=== PATIENT | male | born 1975 | race Caucasian/White ===

== ENCOUNTER 2020-02-16 15:22 | Observation (INO) | payer OTHER ==
--- OUTSIDE RECORDS SUMMARY | 2020-02-16 15:37 | XMS REPORT | Clinical Summary ---
:1975 Author Organization [facility] Address [address] [place] [address] Support Name Relationship Address Phone Jaylin Tinoco Unavailable [address] [place] [address] Gaston Madhav Unavailable Unavailable [email or web address], [facility] Emergency Department Team Providers Name Role Phone Tara Primary Care Provider Joel Dominique Unavailable Allergies No Known Allergies Medications Medication Sig Dispensed Refills Start Date End Date Status metoprolol (TOPROL-XL) Take 50 mg by 0 Active 50 MG 24 hr tablet mouth 2 (two) times daily. aspirin 81 MG EC tablet Take 81 mg by 0 Active mouth daily. pantoprazole (PROTONIX) Take 1 tablet (40 30 tablet 0 07/31/19 16 Active 40 MG tablet mg total) by mouth daily. 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 Pulmonary embolus 07/14/2015 Acute respiratory failure with hypoxemia 07/13/2015 Coronary artery disease involving [place] coronary paulette ry of [place] heart 07/11/2015 with other form of angina pectoris S/P CABG x 1 07/11/2015 Postoperative anemia due to acute blood loss 6 Acute respiratory insufficiency, postoperative 016 CAD (coronary artery disease) 07/05/2015 HTN (hypertension) 07/05/2015 Family History Medical History Relation Name Comments Peripheral vascular disease Father Relation Name Status Comments Father Social History Tobacco Use Types Packs/Day Years Used Date Former Smoker 0.75 20 07/04/1995 - 0 06/27/2015 Alcohol Use Drinks/Week oz/Week Comments Yes rarely Sex Assigned at Date Recorded Not on file Last Filed Vital Signs Not on file Plan of Treatment Not on file Results Not on fileafter 02/15/2019 Insurance Payer Benefit Plan / Subscriber ID Effective Dates Phone Addre ss Type Group CIGNA - MGD CIGNA [id number] 2015-Present HMO/POS CARE HMO/POS/OPEN ACCESS Advance Directives For more information, please contact: [phone] Code Status Date Activated Date Inactivated Comments Full Code 07/18/2015 2:18 PM 07/31/2015 5:40 PM This code status was determined by: Patient Full Code 07/13/2015 11:32 PM 07/18/2015 2:18 PM This code status was determined by: Patient Full Code 07/11/2015 5:56 AM 07/13/2015 11:32 PM This code status was determined by: Patient
[2020-02-16] MEDS ORDERED: FENTANYL CITR 100 MCG/2 ML ONE (15:50)
[2020-02-16 15:52] LABS: Basophils % 0.5 % (0-1.3); Hematocrit 46.4 % (39.6-49.0); Lymphocytes % 47.1 % (15.3-44.8); MPV 8.4 fL (7.6-11.3); RBC Red Blood Cell Count 5.57 M/uL (4.33-5.43)
[2020-02-16 15:56] LABS: Protime INR 1.27
--- NOTE | 2020-02-16 16:15 | RAD REPORT ---
EXAM DESCRIPTION: CT - Angio Aorta For Dissection - 02/16/2020 3:52 pm CLINICAL HISTORY: . Chest and abdominal pain COMPARISON: 2016 CT abdomen TECHNIQUE: Computed tomography angiography of the chest, abdomen pelvis were obtained. 100 cc Isovue 370 was administered intravenously. Coronal and sagittal reconstruction were performed. MIP 3D reconstruction was performed All CT scans are performed using dose optimization technique as appropriate and may include automated exposure control or mA/KV adjustment according to patient size. FINDINGS: An aortic dissection is not seen. An aortic aneurysm is not displayed. The celiac, SMA and SHARMILA are patent . Mild left lower lobe opacity probably atelectasis. . A pericardial effusion is not seen. A pleural ef fusion is not noted. The liver,spleen, pancreas adrenals kidneys demonstrate no significant abnormality. The appendix is normal. There no evidence diverticulitis. No ascites is noted. 23 millimeter round mass is present within the subcutaneous tissues of the right upper posterior back . Gallstones without gallbladder wall thickening IMPRESSION: Negative for an aortic dissection. 23 millimeter mass subcutaneous tissues right upper back has a nonspecific appearance Cholelithiasis
[2020-02-16 16:32] LABS: ALT/SGPT 72 U/L (12-78); AST/SGOT 81 U/L (15-37); Albumin 4.3 g/dL (3.4-5.0); Alkaline Phosphatase 90 U/L (45-117); BUN Blood Urea Nitrogen 13 mg/dL (7-18); Bicarbonate 25 mmol/L (21-32); Bilirubin Direct 0.2 mg/dL (0-0.2); Bilirubin Total 0.7 mg/dL (0.2-1.0); Glucose Level 111 mg/dL (74-106); Magnesium 2.4 mg/dL (1.8-2.4); NT PRO-BNP 22 pg/mL (<125); Potassium 3.4 mmol/L (3.5-5.1); Protein, Total 8.3 g/dL (6.4-8.2); Sodium Level 139 mmol/L (136-145); Troponin (Emerg Dept Use Only) < 0.02 ng/mL (0.0-0.045)
--- NOTE | 2020-02-16 16:38 | RAD REPORT ---
EXAM DESCRIPTION: Eva Single View02/16/2020 3:58 pm CLINICAL HISTORY: Chest pain COMPARISON: 2016 FINDINGS: The lungs appear clear of acute infiltrate. The heart is mildly enlarged. Postsurgical changes involve the chest. IMPRESSION: No acute abnormalities displayed
[2020-02-16] MEDS ORDERED: POTASSIUM 25 MEQ EFFERV TAB ONE (16:54)
--- NOTE | 2020-02-16 17:07 | EDPHYS ---
Physician Documentation [facility] Name: Gunner Corey Age: 44 yrs Sex: Male : 1975 Arrival Date: 02/16/2020 Time: 15:22 Bed 8 Private MD: ED Physician Paulo Baca HPI: 02/15 15:30 This 44 yrs old Male presents to ER via Wheelchair with complaints of cp Shortness Of Breath, Chest Pain. 15:30 The patient has shortness of breath at rest. Onset: The symptoms/episode began/occurred cp suddenly, 20 minute(s) ago. Duration: The symptoms are continuous, and are steadily getting worse. The patient's shortness of breath is aggravated by light activity. Associated signs and symptoms: Pertinent positives: chest pain, diaphoresis, abdominal pain, Pertinent negatives: non-productive cough, productive cough, fever, nausea, vomiting. Severity of symptoms: in the emergency department the symptoms are unchanged despite home interventions. Historical: - Allergies: 15:35 No Known Allergies; ca1 - Home Meds: 15:35 Xarelto Oral [Active]; atorvastatin oral oral [Active]; ca1 - PMHx: 15:35 Hyperlipidemia; Hypertension; ca1 - PSHx: 15:35 CABG; ca1 - Immunization history:: Adult Immunizations up to date, Flu vaccine is not up to date. - Social history:: Smoking status: Patient/guardian denies using tobacco, the patient reports quitting approximately 4 years ago. ROS: 15:33 Constitutional: Negative for body aches, chills, fever, poor PO intake. cp 15:33 Eyes: Negative for injury, pain, redness, and discharge. cp 15:33 ENT: Negative for ear pain, sore throat, difficulty swallowing, difficulty handling secretions. 15:33 Cardiovascular: Positive for chest pain, palpitations, paroxysmal nocturnal dyspnea. 15:33 Respiratory: Positive for shortness of breath, Negative for cough, wheezing. 15:33 Abdomen/GI: Positive for nausea, Negative for abdominal pain, vomiting, diarrhea, constipation. 15:33 MS/extremity: Negative for paresthesias, rash. 15:33 All other systems are negative. Exam: 15:30 ECG was reviewed by the Attending Physician. cp 15:33 Constitutional: The patient appears in no acute distress, alert, awake, well developed, cp well nourished. 15:33 Head/Face: Normocephalic, atraumatic. cp 15:35 Eyes: Periorbital structures: appear normal, Conjunctiva: normal, Sclera: no cp appreciated abnormality, Lids and lashes: appear normal, bilaterally. 15:35 ENT: External ear(s): are unremarkable, Nose: is normal, Mouth: Lips: moist, Oral cp mucosa: moist, Posterior pharynx: Airway: no evidence of obstruction, patent. 15:35 Neck: ROM/movement: is normal, is supple, without pain, no range of motions limitations, no nuchal rigidity. 15:35 Chest/axilla: Inspection: normal, Palpation: is normal, no crepitus, no tenderness. 15:35 Cardiovascular: Rate: normal, Rhythm: regular, Pulses: Pulses are 2+ in right radial artery and left radial artery. Edema: is not appreciated, JVD: is not appreciated. 15:35 Respiratory: the patient does not display signs of respiratory distress, Respirations: normal, no use of accessory muscles, no retractions, labored breathing, is not present, Breath sounds: are clear throughout, no decreased breath sounds, no stridor, no wheezing. 15:35 Abdomen/GI: Inspection: abdomen appears normal, Bowel sounds: active, all quadrants, Palpation: soft, in all quadrants, moderate abdominal tenderness, in the right upper quadrant and left upper quadrant, rebound tenderness, is not appreciated, involuntary guarding, is not appreciated. 15:35 Back: pain, is absent, ROM is normal. 15:35 Neuro: Orientation: to person, place \T\ time. Mentation: is normal, Cerebellar function: is grossly normal, Motor: moves all fours, strength is normal, Sensation: is normal. Vital Signs: 15:25 BP 177 / 95 LA; ca1 15:25 BP 153 / 92 RA; ca1 15:25 Pulse 95; Resp 20; Temp 97.7(TE); Pulse Ox 100% on R/A; Pain 8/10; ca1 15:27 BP 141 / 87; Pulse 93 LA; jl7 15:30 BP 128 / 70 LA; jl7 15:33 BP 97 / 58 RA; jl7 15:38 BP 80 / 54 RA; jl7 15:48 BP 128 / 62 RA; Pulse 83; Resp 20; Pulse Ox 97% ; jl7 16:33 BP 129 / 78; Pulse 74; Resp 15; Pulse Ox 99% ; jl7 17:31 BP 136 / 87; Pulse 73; Resp 15; Pulse Ox 100% ; jl7 18:02 Temp 97.9; jl7 MDM: 15:23 Patient medically screened. prakash 15:24 Patient medically screened. prakash 16:00 Differential diagnosis: pneumonia, Pneumothorax pulmonary edema, Pulmonary Embolism cp Unstable Angina acute TN, cholecystitis, pancreatitis, dissecting aneurysm. 16:45 Data reviewed: vital signs, nurses notes, lab test result(s), EKG, radiologic studies, cp CT scan, plain films. 16:45 Test interpretation: by ED physician or midlevel provider: ECG. cp 17:05 Counseling: I had a detailed discussion with the patient and/or guardian regarding: the cp historical points, exam findings, and any diagnostic results supporting the discharge/admit diagnosis, lab results, radiology results, the need for further work-up and treatment in the hospital. 17:05 Response to treatment: the patient's symptoms have markedly improved after treatment. Physician consultation: Nahid Julianmaria dolores was called at 16:55, was contacted at 16:55, regarding admission, to the telemetry unit. patient's condition, and will see patient in ED, shortly. 02/15 15:32 Order name: Basic Metabolic Panel; Complete Time: 16:38 02/15 16:38 Interpretation: Normal except: K 3.4; GLUC 111; GFR 84. cp 02/15 15:32 Order name: CBC with Diff; Complete Time: 16:19 02/15 15:32 Order name: LFT's; Complete Time: 16:38 02/15 15:32 Order name: Magnesium; Complete Time: 16:38 cp 02/15 15:32 Order name: NT PRO-BNP; Complete Time: 16:38 cp 02/15 15:32 Order name: PT-INR; Complete Time: 16:19 cp 02/15 15:32 Order name: Troponin (emerg Dept Use Only); Complete Time: 16:38 cp 02/15 15:32 Order name: XRAY Chest (1 view) 02/15 15:32 Order name: CT Aorta for Dissection; Complete Time: 16:19 cp 02/15 15:35 Order name: Lipase; Complete Time: 16:19 02/15 16:21 Order name: US Abdomen Limited: RUQ/epigastric cp 02/15 15:32 Order name: EKG; Complete Time: 15:32 cp 02/15 15:32 Order name: Cardiac monitoring; Complete Time: 15:36 cp 02/15 15:32 Order name: EKG - Nurse/Tech; Complete Time: 15:36 cp 02/15 15:32 Order name: IV Saline Lock; Complete Time: 15:37 cp 02/15 15:32 Order name: Labs collected and sent; Complete Time: 15:37 cp 02/15 15:32 Order name: O2 Per Protocol; Complete Time: 15:37 cp 02/15 15:32 Order name: O2 Sat Monitoring; Complete Time: 15:37 cp EC:30 Rate is 95 beats/min. Rhythm is regular. ID interval is normal. QRS interval is normal. cp QT interval is prolonged at 384 msec. T waves are Inverted in leads aVL, aVR. Interpreted by me. Reviewed by me. Administered Medications: 16:55 Drug: fentaNYL (PF) 25 mcg Route: IVP; Site: right antecubital; jl7 17:18 Follow up: Response: No adverse reaction; Pain is decreased jl7 16:59 Drug: Potassium Effervescent Tablet 25 mEq Route: PO; jl7 17:19 Follow up: Response: No adverse reaction jl7 17:00 Drug: NS 0.9% 1000 ml Route: IV; Rate: 1 bolus; Site: right antecubital; jl7 18:04 Follow up: Response: No adverse reaction; IV Status: Completed infusion; IV Intake: jl7 1000ml 17:30 Drug: Aspirin Chewable Tablet 324 mg Route: PO; jl7 17:50 Follow up: Response: No adverse reaction jl7 17:30 Not Given (Physician Discretion): Nitroglycerin 0.4 mg Sublingual once; every five jl7 minute if needed x3 Disposition: 02/16 10:55 Co-signature as Attending Physician, Paulo Baca MD I agree with the assessment and prakash plan of care. Disposition: 02/16/20 17:06 Hospitalization ordered by Nahid Schmidt for Observation. Preliminary diagnosis are Chest pain, unspecified, Cholelithiasis. - Bed requested for Telemetry/MedSurg (observation). - Status is Observation. jl7 - Condition is Stable. - Problem is new. - Symptoms have improved. Signatures: Dispatcher [employer] EDMine Michelle, RN RN Paulo Tovar MD MD cha Page, Corey, PA PA Evangelista Dunaway RN RN jl7 Petty Porter RN RN ca1 Corrections: (The following items were deleted from the chart) 02/15 17:54 17:06 Hospitalization Ordered by Nahid Schmidt for Observation. Preliminary diagnosis kl is Chest pain, unspecified; Cholelithiasis. Bed requested for Telemetry/MedSurg (observation). Status is Observation. Condition is Stable. Problem is new. Symptoms have improved. cp 18:20 17:54 02/16/2020 17:06 Hospitalization Ordered by Nahid Schmidt for Observation. jl7 Preliminary diagnosis is Chest pain, unspecified; Cholelithiasis. Bed requested for Telemetry/MedSurg (observation). Status is Observation. Condition is Stable. Problem is new. Symptoms have improved. kl
--- NOTE | 2020-02-16 17:07 | ER ---
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 States, "crampy pain at my diaphragm, like I can't take a deep breath". Hx of CABG on 2016 for coronary artery blockage. Denies HX of heart attack. 15:25 Coronavirus screen: Client denies travel out of the [place] in the last 14 days. shortness ca1 of breath, Client presents with at least one sign or symptom that may indicate coronavirus-19. Standard/surgical mask placed on the client. Provider contacted for isolation considerations. Ebola Screen: Patient negative for fever greater than or equal to 101.5 degrees Fahrenheit, and additional compatible Ebola Virus Disease symptoms Patient denies exposure to infectious person. Patient denies travel to an Ebola-affected area in the 21 days before illness onset. No symptoms or risks identified at this time. Initial Sepsis Screen: Does the patient meet any 2 criteria? No. Patient's initial sepsis screen is negative. Does the patient have a suspected source of infection? No. Patient's initial sepsis screen is negative. Risk Assessment: Do you want to hurt yourself or someone else? Patient reports no desire to harm self or others. Onset of symptoms was February 16, 2020. 15:25 Method Of Arrival: Wheelchair ca1 15:25 Acuity: WAQAR 2 ca1 Historical: - Allergies: 15:35 No Known Allergies; ca1 - Home Meds: 15:35 Xarelto Oral [Active]; atorvastatin oral oral [Active]; ca1 - PMHx: 15:35 Hyperlipidemia; Hypertension; ca1 - PSHx: 15:35 CABG; ca1 - Immunization history:: Adult Immunizations up to date, Flu vaccine is not up to date. - Social history:: Smoking status: Patient/guardian denies using tobacco, the patient reports quitting approximately 4 years ago. Screenin:30 Abuse screen: Denies threats or abuse. Denies injuries from another. Nutritional jl7 screening: No deficits noted. Tuberculosis screening: No symptoms or risk factors identified. Fall Risk IV access (20 points). Total Rogel Fall Scale indicates No Risk (0-24 pts). Assessment: 15:26 Reassessment: SHAYNA Greenberg at bedside. ca1 15:30 General: Appears distressed, uncomfortable, Behavior is cooperative, anxious. Pain: jl7 Complains of pain in diaphragm Pain does not radiate. Pain currently is 10 out of 10 on a pain scale. Quality of pain is described as squeezing, Pain began 30 min ago. Is intermittent. Neuro: Level of Consciousness is awake, alert, obeys commands, Oriented to person, place, time, situation. Cardiovascular: Rhythm is regular. Respiratory: Reports shortness of breath Airway is patent Respiratory effort is even, unlabored, Respiratory pattern is regular, symmetrical, Breath sounds are clear bilaterally. the patient has severe shortness of breath. GI: Abdomen is non-distended. Derm: Skin is diaphoretic, Skin is pale, Skin temperature is cool. 15:59 Reassessment: Pt reports severe upper abdominal pain, described as squeezing, pt jl7 appeared to become pale and states "I don't feel right." Pt's BP trending down. ERP notified, VO for [address] notified, pt taken to CT via stretcher accompanied by GENIE Naidu and Tonya RN. Pt reports feeling better post CT scan after the contrast was pushed. BP WNL. 17:00 Reassessment: Patient appears in no apparent distress at this time. Patient and/or jl7 family updated on plan of care and expected duration. Pain level reassessed. Patient is alert, oriented x 3, equal unlabored respirations, skin warm/dry/pink. Patient states feeling better. Patient states symptoms have improved. Vital Signs: 15:25 BP 177 / 95 LA; ca1 15:25 BP 153 / 92 RA; ca1 15:25 Pulse 95; Resp 20; Temp 97.7(TE); Pulse Ox 100% on R/A; Pain 8/10; ca1 15:27 BP 141 / 87; Pulse 93 LA; jl7 15:30 BP 128 / 70 LA; jl7 15:33 BP 97 / 58 RA; jl7 15:38 BP 80 / 54 RA; jl7 15:48 BP 128 / 62 RA; Pulse 83; Resp 20; Pulse Ox 97% ; jl7 16:33 BP 129 / 78; Pulse 74; Resp 15; Pulse Ox 99% ; jl7 17:31 BP 136 / 87; Pulse 73; Resp 15; Pulse Ox 100% ; jl7 18:02 Temp 97.9; jl7 ED Course: 15:22 Patient arrived in ED. as 15:23 Paulo Simon PA is PHCP. cp 15:23 Paulo Baca MD is Attending Physician. cp 15:25 Arm band placed on. Patient Notified SHAYNA Greenberg. EKG completed in triage. Results ca1 shown to . 15:30 EKG done, by ED staff, reviewed by Paulo CORRAL. em1 15:30 Initial lab(s) drawn, by me, sent to lab. Inserted saline lock: 20 gauge in right jl7 antecubital area, using aseptic technique. Blood collected. 15:30 Patient has correct armband on for positive identification. Placed in gown. Bed in low jl7 position. Call light in reach. Side rails up X2. government clerk on. Pulse ox on. NIBP on. Warm blanket given. 15:34 Triage completed. ca1 15:35 Evangelista Sanders, RN is Primary Nurse. jl7 15:35 Radiology exam delayed due to IV insertion attempt and/or patient not having vm2 appropriate IV at this time. 15:35 Inserted saline lock: 20 gauge in left antecubital area, using aseptic technique. jl7 ,using aseptic technique. inserted by CHERIE Boo. 15:52 CT Aorta for Dissection In Process Unspecified. EDMS 15:56 XRAY Chest (1 view) In Process Unspecified. EDMS 17:00 No provider procedures requiring assistance completed. Patient admitted, IV remains in jl7 place. intact, No redness/swelling at site. 17:06 Nahid Schmidt is Hospitalizing Provider. cp 17:27 US Abdomen Limited: RUQ/epigastric In Process Unspecified. EDMS Administered Medications: 16:55 Drug: fentaNYL (PF) 25 mcg Route: IVP; Site: right antecubital; jl7 17:18 Follow up: Response: No adverse reaction; Pain is decreased jl7 16:59 Drug: Potassium Effervescent Tablet 25 mEq Route: PO; jl7 17:19 Follow up: Response: No adverse reaction jl7 17:00 Drug: NS 0.9% 1000 ml Route: IV; Rate: 1 bolus; Site: right antecubital; jl7 18:04 Follow up: Response: No adverse reaction; IV Status: Completed infusion; IV Intake: jl7 1000ml 17:30 Drug: Aspirin Chewable Tablet 324 mg Route: PO; jl7 17:50 Follow up: Response: No adverse reaction jl7 17:30 Not Given (Physician Discretion): Nitroglycerin 0.4 mg Sublingual once; every five jl7 minute if needed x3 Intake: 18:04 IV: 1000ml; Total: 1000ml. jl7 Outcome: 17:06 Decision to Hospitalize by Provider. cp 18:09 Admitted to Tele accompanied by tech, via wheelchair, room 208, with chart, Report jl7 called to 208 18:09 Condition: stable 18:09 Discharge instructions given to patient, Instructed on the need for admit, Demonstrated understanding of instructions. 18:20 Patient left the ED. jl7 Signatures: Dispatcher [employer] EDMS Cora Kim Eric em1 Paulo Simon PA PA cp Evangelista Sanders RN RN jl7 Cyndy Martines 2 Petty Porter RN RN ca1 Corrections: (The following items were deleted from the chart) 15:36 15:35 Arm band placed on ca1 ca1 15:36 15:35 EKG completed in triage. Results shown to . ca1 ca1 15:36 15:35 Patient Notified SHAYNA Greenberg ca1 ca1
[2020-02-16] MEDS ORDERED: ASPIRIN 81 MG CHEWABLE TABLET ONE (17:38)
[2020-02-16] MEDS ORDERED: NA CHLORIDE 0.9% 1,000 ML ONE (17:38)
--- NOTE | 2020-02-16 17:50 | RAD REPORT ---
EXAM DESCRIPTION: US - Abdomen Exam Limited - 02/16/2020 5:27 pm CLINICAL HISTORY: Abdominal pain. . FINDINGS: Multiple gallstones. . The gallbladder wall is not thickened. The biliary tree is normal caliber. IMPRESSION: Cholelithiasis without evidence of cholecystitis
--- NOTE | 2020-02-16 17:55 | P.HP ---
Certification for Inpatient Patient admitted to: Observation With expected LOS: <2 Midnights Practitioner: I am a practitioner with admitting privileges, knowledge of patient current condition, hospital course, and medical plan of care. Services: Services provided to patient in accordance with Admission requirements found in Title 42 Section 412.3 of the Code of Federal Regulations Patient History Date of Service: 02/16/20 Reason for admission: Epigastric pain History of Present Illness: 44-year-old gentleman with a history of coronary artery disease status post CABG for 1 vessel disease, history of chronic atrial fibrillation on Xarelto anticoagulation presented emergency department with a complaint epigastric pain of sudden onset. Pain became severe through the course of the day and therefore presented to the emergency department. His initial troponin is negative. EKG demonstrates incomplete branch block and nondiagnostic for ischemia. Chest x- ray is unremarkable. Right upper quadrant sonogram was done which showed patient has gallstones but no evidence of cholecystitis. Patient denied any chest pain. The ED provider insisted hospitalization for ACS rule out given patient's risk factors. Patient is placed on observation. Allergies insect venom Allergy (Verified 04/03/16 08:31) severe swelling at site - Past Medical/Surgical History -: Coronal artery disease -: Atrial fibrillation -: CABG - Family History Father -: Hypertension - Social History Smoking Status: Former smoker Alcohol use: No CD- Drugs: No Place of Residence: Home Review of Systems Other: Except as documented other systems reviewed and negative. Physical Examination - Physical Exam General: Alert, In no apparent distress, Oriented x3 HEENT: Normocephalic, Mucous membr. moist/pink Neck: Supple, JVD not distended Respiratory: Clear to auscultation bilaterally, Normal air movement Cardiovascular: No edema, Regular rate/rhythm, Normal S1 S2 Capillary refill: <2 Seconds Gastrointestinal: Normal bowel sounds, Soft and benign, Non-distended, Tenderness (Mild epigastric tenderness.) Musculoskeletal: No swelling, No erythema Integumentary: No rashes, No tenderness/swelling Neurological: Normal speech, Normal strength at 5/5 x4 extr - Studies Laboratory Data (last 24 hrs) 02/16/20 15:37: Lipase 211 02/16/20 15:37: PT 14.9 H, INR 1.27 02/16/20 15:37: WBC 8.5, Hgb 15.6, Hct 46.4, Plt Count 361 02/16/20 15:37: Sodium 139, Potassium 3.4 L, BUN 13, Creatinine 0.97, Glucose 111 H, Magnesium 2.4, Total Bilirubin 0.7, AST 81 H, ALT 72, Alkaline Phosphatase 90 Assessment and Plan - Problems (Diagnosis) (1) Epigastric pain Current Visit: Yes Status: Acute (2) Coronary artery disease Current Visit: Yes Status: Acute (3) Chronic atrial fibrillation Current Visit: Yes Status: Acute (4) Chronic anticoagulation Current Visit: Yes Status: Acute - Plan Place patient under observation. Trend troponin. Trial of IV Protonix for epigastric pain. Continue Xarelto Added aspirin Check lipid profile. Further management will be based on troponin result. - Advance Directives Does patient have a Living Will: No Does patient have a Durable POA for Healthcare: No
[2020-02-16] MEDS ORDERED: SODIUM CHLORIDE 0.9% 10ML INJ IV PRN (18:15)
[2020-02-16] MEDS ORDERED: NITROGLYCERIN 0.4 MG/TAB SL PRN (18:15)
[2020-02-16 18:31] VITALS: BMI 31.2
[2020-02-16 19:14] LABS: HDL Cholesterol 57 mg/dL (40-60); LDL Cholesterol, Calculated 95 (<130); Troponin I < 0.02 ng/mL (0.0-0.045)
[2020-02-16] MEDS ORDERED: MORPHINE 2 MG/ML SYR IV PRN (19:32)
[2020-02-16 21:02] VITALS: O2SAT 97
[2020-02-16] MEDS: PANTOPRAZOLE 40 MG INJ IVP SCH (21:02)
--- NOTE | 2020-02-17 07:26 | EKG ---
Test Date: 2020-02-16 Test Time: 15:28:15 Airplane Cabin Attendant: ISMA MEASUREMENT RESULTS: Intervals: Rate: 95 MN: 142 QRSD: 96 QT: 384 QTc: 482 [place]: P: 66 MN: 142 QRS: 0 T: 98 INTERPRETIVE STATEMENTS: Sinus rhythm with fusion complexes Possible Left atrial enlargement Left ventricular hypertrophy with repolarization abnormality Prolonged QT Abnormal ECG Compared to ECG 04/03/2016 08:42:26 Fusion complex(es) now present Prolonged QT interval now present Electronically Signed On 02-17-20 07:24:49 CDT by Junito Coates
[2020-02-17] MEDS ORDERED: ASPIRIN EC 81 MG TAB PO SCH (09:00)
--- NOTE | 2020-02-17 09:00 | P.DS ---
Admission Date: 02/16/20 Discharge Date: 02/17/20 Disposition: ROUTINE DISCHARGE Discharge Condition: FAIR Reason for Admission: Epigastric pain - Problems (1) Epigastric pain Current Visit: Yes Status: Acute (2) Coronary artery disease Current Visit: Yes Status: Acute (3) Chronic atrial fibrillation Current Visit: Yes Status: Acute (4) Chronic anticoagulation Current Visit: Yes Status: Acute Brief History of Present Illness: 44-year-old gentleman with a history of coronary artery disease status post CABG for 1 vessel disease, history of chronic atrial fibrillation on Xarelto anticoagulation presented emergency department with a complaint epigastric pain of sudden onset. Pain became severe through the course of the day and therefore presented to the emergency department. His initial troponin is negative. EKG demonstrates incomplete branch block and nondiagnostic for ischemia. Chest x- ray is unremarkable. Right upper quadrant sonogram was done which showed patient has gallstones but no evidence of cholecystitis. Patient denied any chest pain. The ED provider insisted on hospitalization for ACS rule out given patient's risk factors. Patient is placed on observation. Hospital Course: Troponin trended came back negative. Patient was asymptomatic throughout the hospital stay. He experienced transient abdominal cramps prior to hospitalization. He denied any chest pain. Lipid profile checked was unremarkable. Patient is deemed clinically stable for discharge. He is advised to follow with his grant officer for a stress test in the near future. Vital Signs/Physical Exam: Temp Pulse Resp BP Pulse Ox 96.9 F 56 16 133/81 97 02/17/20 08:00 02/17/20 08:00 02/17/20 08:00 02/17/20 08:00 02/17/20 08:00 Laboratory Data at Discharge: WBC 8.5 K/uL (4.3-10.9) 02/16/20 15:37 Hgb 15.6 g/dL (13.6-17.9) 02/16/20 15:37 Hct 46.4 % (39.6-49.0) 02/16/20 15:37 Plt Count 361 K/uL (152-406) 02/16/20 15:37 PT 14.9 SECONDS (9.5-12.5) H 02/16/20 15:37 INR 1.27 02/16/20 15:37 Sodium 139 mmol/L (136-145) 02/16/20 15:37 Potassium 3.4 mmol/L (3.5-5.1) L 02/16/20 15:37 BUN 13 mg/dL (7-18) 02/16/20 15:37 Creatinine 0.97 mg/dL (0.55-1.3) 02/16/20 15:37 Glucose 111 mg/dL (74-106) H 02/16/20 15:37 Magnesium 2.4 mg/dL (1.8-2.4) 02/16/20 15:37 Total Bilirubin 0.7 mg/dL (0.2-1.0) 02/16/20 15:37 AST 81 U/L (15-37) H 02/16/20 15:37 ALT 72 U/L (12-78) 02/16/20 15:37 Alkaline Phosphatase 90 U/L (45-117) 02/16/20 15:37 Troponin I < 0.02 ng/mL (0.0-0.045) 02/16/20 21:49 Triglycerides 78 mg/dL (<150) 02/16/20 18:38 Cholesterol 168 mg/dL (<200) 02/16/20 18:38 HDL Cholesterol 57 mg/dL (40-60) 02/16/20 18:38 Cholesterol/HDL Ratio 2.95 02/16/20 18:38 Lipase 211 U/L (73-393) 02/16/20 15:37 Home Medications: Atorvastatin Calcium [Lipitor*] 20 mg PO SEECOM 02/16/20 Rivaroxaban [Xarelto] 20 mg PO BEDTIME 02/16/20 Nitroglycerin [Nitrostat*] 0.4 mg SL UD PRN #20 tab 02/17/20 New Medications: Nitroglycerin [Nitrostat*] 0.4 mg SL UD PRN #20 tab PRN Reason: Pain Scale 2-4 (Mild) Diet: AHA Activity: Ad karmen Followup: NONE,NONE [Primary Care Provider] - Junito Coates MD [ACTIVE - CAN ADMIT] - 1 Week
[2020-02-17] MEDS: PANTOPRAZOLE 40 MG INJ IVP SCH (09:04)
[2020-02-17 12:09] VITALS: BP 118/72; TEMP 97.3
== END 2020-02-17 12:05 | disposition home or self-care (01) ==
LOC: ER 15:22 → ERHOLD 17:43 → 2ND 18:10
PROVIDERS: ADMIT Internal Medicine; ATTEND Internal Medicine
DX: R10.13 Epigastric pain (principal); I25.10 Atherosclerotic heart disease of native coronary artery without angina pectoris; I48.20 Chronic atrial fibrillation, unspecified; Z20.828 Contact with and (suspected) exposure to other viral communicable diseases; Z79.01 Long term (current) use of anticoagulants; Z95.1 Presence of aortocoronary bypass graft; K80.20 Calculus of gallbladder without cholecystitis without obstruction; Z87.891 Personal history of nicotine dependence; E78.5 Hyperlipidemia, unspecified; I10 Essential (primary) hypertension; R94.31 Abnormal electrocardiogram [ECG] [EKG]
CPT/HCPCS: 96361; 93005 ×2; 85025; 80048; 36415; 83735; 85610; 80061; 82565; 80076; 84484 ×3; 83690; 83880; 71275; 74175; 71045; 76705; 96374; 99285; U0002; Q9967; C9113 ×2; J3010; J7030; G0378 ×3

== ENCOUNTER 2020-11-30 11:29 | Emergency (ER) | payer OTHER ==
[2020-11-30 12:38] LABS: ALT/SGPT 41 U/L (12-78); AST/SGOT 36 U/L (15-37); Alkaline Phosphatase 58 U/L (45-117); BUN Blood Urea Nitrogen 12 mg/dL (7-18); Bicarbonate 26 mmol/L (21-32); Bilirubin Direct 0.2 mg/dL (0-0.2); Bilirubin Total 0.6 mg/dL (0.2-1.0); Glucose Level 99 mg/dL (74-106); Magnesium 2.7 mg/dL (1.8-2.4); NT PRO-BNP 161 pg/mL (<125); Potassium 3.6 mmol/L (3.5-5.1); Protein, Total 7.6 g/dL (6.4-8.2); Sodium Level 137 mmol/L (136-145); Troponin (Emerg Dept Use Only) < 0.02 ng/mL (0.0-0.045)
--- NOTE | 2020-11-30 12:39 | RAD REPORT ---
EXAM DESCRIPTION: RAD - Chest Single View - 11/30/2020 12:31 pm CLINICAL HISTORY: DYSPNEA Chest pain. COMPARISON: Chest Single View dated 02/16/2020 FINDINGS: Portable technique limits examination quality. Mild bilateral pulmonary opacities are noted, greater on the left. This likely represents viral pulmo nary infection/bronchitis. The heart is normal in size. Sternotomy wires present.
[2020-11-30 12:52] LABS: Basophils % 0.2 % (0-1.3); Hematocrit 44.2 % (39.6-49.0); Lymphocytes % 18.1 % (15.3-44.8); RBC Red Blood Cell Count 5.39 M/uL (4.33-5.43)
[2020-11-30 12:53] LABS: Protime INR 1.23
[2020-11-30] MEDS ORDERED: NA CHLORIDE 0.9% 1,000 ML ONE (13:22)
[2020-11-30] MEDS ORDERED: METHYLPREDNISOLONE 125 MG INJ ONE (13:22)
--- NOTE | 2020-11-30 14:45 | EDPHYS ---
Physician Documentation [facility] Name: Gunner Corey Age: 45 yrs Sex: Male : 1975 Arrival Date: 11/30/2020 Time: 11:31 Bed 26 Private MD: ED Physician Jerad Bullard HPI: 11/30 13:56 This 45 yrs old Male presents to ER via Ambulatory with complaints of Low BP jr8 80/60 sent from 13:56 Patient stated that he has had Covid for approximately 1 week. Started to notice jr8 increasing shortness of breath and lightheadedness with ambulation. Patient hypotensive upon arrival.. Severity of symptoms: At their worst the symptoms were moderate in the emergency department the symptoms are unchanged. The patient has not experienced similar symptoms in the past. The patient has not recently seen a physician. Historical: - Allergies: 11:47 No Known Allergies; ca1 - Home Meds: 13:26 atorvastatin Oral [Active]; Xarelto Oral [Active]; tr6 - PMHx: 11:47 Hyperlipidemia; Hypertension; ca1 13:26 pulmonary embolism; tr6 - PSHx: 13:26 cabg; tr6 - Immunization history:: Client reports having NOT received the Covid vaccine. - Social history:: Smoking status: Patient/guardian denies using tobacco, the patient reports quitting approximately 5 years ago. ROS: 13:56 Eyes: Negative for injury, pain, redness, and discharge, ENT: Negative for injury, jr8 pain, and discharge, Neck: Negative for injury, pain, and swelling, Cardiovascular: Negative for chest pain, palpitations, and edema, Abdomen/GI: Negative for abdominal pain, nausea, vomiting, diarrhea, and constipation, Back: Negative for injury and pain, MS/Extremity: Negative for injury and deformity, Skin: Negative for injury, rash, and discoloration. 13:56 Respiratory: Positive for dyspnea on exertion, shortness of breath. 13:56 Neuro: Positive for dizziness. Exam: 13:56 Constitutional: This is a well developed, well nourished patient who is awake, alert, jr8 and in no acute distress. ENT: Nares patent. No nasal discharge, no septal abnormalities noted. Tympanic membranes are normal and external auditory canals are clear. Oropharynx with no redness, swelling, or masses, exudates, or evidence of obstruction, uvula midline. Mucous membranes moist. Neck: Trachea midline, no thyromegaly or masses palpated, and no cervical lymphadenopathy. Supple, full range of motion without nuchal rigidity, or vertebral point tenderness. No Meningismus. Cardiovascular: Regular rate and rhythm with a normal S1 and S2. No gallops, murmurs, or rubs. Normal PMI, no JVD. No pulse deficits. Respiratory: Lungs have equal breath sounds bilaterally, clear to auscultation and percussion. No rales, rhonchi or wheezes noted. No increased work of breathing, no retractions or nasal flaring. Abdomen/GI: Soft, non-tender, with normal bowel sounds. No distension or tympany. No guarding or rebound. No evidence of tenderness throughout. Back: No spinal tenderness. No costovertebral tenderness. Full range of motion. Skin: Warm, dry with normal turgor. Normal color with no rashes, no lesions, and no evidence of cellulitis. MS/ Extremity: Pulses equal, no cyanosis. Neurovascular intact. Full, normal range of motion. Neuro: Awake and alert, GCS 15, oriented to person, place, time, and situation. Cranial nerves II-XII grossly intact. Motor strength 5/5 in all extremities. Sensory grossly intact. Vital Signs: 11:44 BP 83 / 59 RA; Pulse 81; Resp 18 S; Temp 97.8(TE); Pulse Ox 95% on R/A; Weight 96.16 kg ca1 (R); Height 5 ft. 11 in. (180.34 cm) (R); Pain 0/10; 11:48 BP 84 / 54 LA; ca1 12:01 BP 102 / 73 RA; Pulse 71; Resp 18; Pulse Ox 94% on R/A; tr6 12:01 BP 89 / 66 LA; Pulse 71; Resp 18; Pulse Ox 94% on R/A; tr6 15:45 BP 129 / 78; Pulse 76; Resp 20 S; Pulse Ox 95% on R/A; jd3 11:44 Body Mass Index 29.57 (96.16 kg, 180.34 cm) ca1 MDM: 11:53 Patient medically screened. jr8 14:35 Data reviewed: vital signs, nurses notes, lab test result(s), radiologic studies, plain jr8 films. Data interpreted: Pulse oximetry: on room air is 97 %. Interpretation: normal. Counseling: I had a detailed discussion with the patient and/or guardian regarding: the historical points, exam findings, and any diagnostic results supporting the discharge/admit diagnosis, lab results, radiology results, the need for outpatient follow up, a family practitioner, to return to the emergency department if symptoms worsen or persist or if there are any questions or concerns that arise at home. Response to treatment: the patient's symptoms have markedly improved after treatment, patient is well hydrated. ED course: Patient's labs stable. Blood pressure markedly improved after fluids. No orthostatic changes. Walked patient around without significant hypoxia. Patient stable to be discharged home at this time. 11/30 11:54 Order name: Basic Metabolic Panel; Complete Time: 12:43 11/30 11:54 Order name: CBC with Diff; Complete Time: 12:58 11/30 11:54 Order name: LFT's; Complete Time: 12:43 11/30 11:54 Order name: Magnesium; Complete Time: 12:43 11/30 11:54 Order name: NT PRO-BNP; Complete Time: 12:43 11/30 11:54 Order name: PT-INR; Complete Time: 12:58 11/30 11:54 Order name: Troponin (emerg Dept Use Only); Complete Time: 12:43 11/30 11:54 Order name: XRAY Chest (1 view); Complete Time: 12:43 11/30 12:11 Order name: Blood Culture Adult (2) 11/30 12:11 Order name: Lactate; Complete Time: 13:53 11/30 12:11 Order name: Procal; Complete Time: 15:04 11/30 11:54 Order name: EKG; Complete Time: 11:55 11/30 11:54 Order name: Cardiac monitoring; Complete Time: 12:02 11/30 11:54 Order name: EKG - Nurse/Tech; Complete Time: 12:58 11/30 11:54 Order name: IV Saline Lock; Complete Time: 12:02 11/30 11:54 Order name: Labs collected and sent; Complete Time: 12:58 11/30 11:54 Order name: O2 Per Protocol; Complete Time: 12:58 jr8 11/30 11:54 Order name: O2 Sat Monitoring; Complete Time: 12:58 jr8 Administered Medications: 13:07 Drug: NS 0.9% 1000 ml Route: IV; Rate: 1000 ml; Site: right wrist; tr6 13:42 Follow up: IV Status: Completed infusion; IV Intake: 1000ml tr6 13:07 Drug: SOLU-Medrol (methylPrednisoLONE) 125 mg Route: IVP; Site: right wrist; tr6 13:42 Follow up: Response: No adverse reaction tr6 14:06 Drug: NS 0.9% 1000 ml Route: IV; Rate: 1000 ml; Site: right wrist; tr6 15:45 Follow up: Response: No adverse reaction; IV Status: Completed infusion jd3 Disposition: 16:05 Co-signature as Attending Physician, Jerad Bullard MD I agree with the assessment and kdr plan of care. Disposition Summary: 11/30/20 14:44 Discharge Ordered Location: Home jr8 Problem: new jr8 Symptoms: have improved jr8 Condition: Stable jr8 Diagnosis - Pneumonia due to SARS-associated coronavirus jr8 - Dehydration jr8 - Hypotension, unspecified jr8 Followup: jr8 - With: Private Physician - When: 1 week - Reason: Recheck today's complaints, Continuance of care, Re-evaluation by your physician Discharge Instructions: - Discharge Summary Sheet jr8 - Dehydration, Adult jr8 - COVID-19 jr8 Forms: - Medication Reconciliation Form jr8 - Thank You Letter jr8 - Antibiotic Education jr8 - Prescription Opioid Use jr8 Prescriptions: - Prednisone 20 mg Oral Tablet - take 1 tablet by ORAL route once daily for 7 days; 7 tablet; Refills: 0, jr8 Product Selection Permitted Signatures: Dispatcher [employer] Jerad Mas MD MD kdr Roszak, Josh, PA PA jr8 Petty Porter RN RN [facility] Treva Whitmore RN RN tr6 Haider Hawley RN jd3
--- NOTE | 2020-11-30 14:45 | ER ---
Nurse's Notes [facility] Name: Gunner Corey Age: 45 yrs Sex: Male : 1975 Arrival Date: 11/30/2020 Time: 11:31 Bed 26 Private MD: Diagnosis: Pneumonia due to SARS-associated coronavirus;Dehydration;Hypotension, unspecified Presentation: 11/30 11:44 Chief complaint: Patient states: Covid+ 11/19/2020. Been recovering, and symptoms ca1 remaining are residual. Went to the PCP for follow up, BP at the PCP office at 80/60. Reports dizziness. Coronavirus screen: Client denies travel out of the [place] in the last 14 days. Client reports previous positive COVID test result. Date of collection: November 19, 2020 Staff notified of need for isolation. Ebola Screen: Patient negative for fever greater than or equal to 101.5 degrees Fahrenheit, and additional compatible Ebola Virus Disease symptoms Patient denies exposure to infectious person. Patient denies travel to an Ebola-affected area in the 21 days before illness onset. No symptoms or risks identified at this time. Initial Sepsis Screen: Does the patient meet any 2 criteria? No. Patient's initial sepsis screen is negative. Does the patient have a suspected source of infection? No. Patient's initial sepsis screen is negative. Risk Assessment: Do you want to hurt yourself or someone else? Patient reports no desire to harm self or others. Onset of symptoms was November 30, 2020. 11:44 Method Of Arrival: Ambulatory ca1 11:44 Acuity: WAQAR 2 ca1 Historical: - Allergies: 11:47 No Known Allergies; ca1 - Home Meds: 13:26 atorvastatin Oral [Active]; Xarelto Oral [Active]; tr6 - PMHx: 11:47 Hyperlipidemia; Hypertension; ca1 13:26 pulmonary embolism; tr6 - PSHx: 13:26 cabg; tr6 - Immunization history:: Client reports having NOT received the Covid vaccine. - Social history:: Smoking status: Patient/guardian denies using tobacco, the patient reports quitting approximately 5 years ago. Screenin:02 Abuse screen: Denies threats or abuse. Denies injuries from another. Nutritional tr6 screening: No deficits noted. Tuberculosis screening: No symptoms or risk factors identified. Fall Risk None identified. Assessment: 12:00 General: Appears in no apparent distress. comfortable, slender, well groomed, Behavior tr6 is calm, cooperative, appropriate for age. Pain: Denies pain. Neuro: Level of Consciousness is awake, alert, obeys commands, Oriented to person, place, time, situation, Appropriate for age Speech is normal. Cardiovascular: Reports shortness of breath. Respiratory: Reports shortness of breath at rest on exertion Airway is patent. GI: No deficits noted. : No deficits noted. EENT: No deficits noted. Derm: No deficits noted. Musculoskeletal: No deficits noted. 13:00 Reassessment: Patient appears in no apparent distress at this time. No changes from [facility] previously documented assessment. Patient and/or family updated on plan of care and expected duration. Pain level reassessed. Patient is alert, oriented x 3, equal unlabored respirations, skin warm/dry/pink. 14:00 Reassessment: Patient appears in no apparent distress at this time. No changes from jd3 previously documented assessment. Patient and/or family updated on plan of care and expected duration. Pain level reassessed. Patient is alert, oriented x 3, equal unlabored respirations, skin warm/dry/pink. Patient states feeling better. 15:00 Reassessment: Patient appears in no apparent distress at this time. No changes from jd3 previously documented assessment. Patient and/or family updated on plan of care and expected duration. Pain level reassessed. Patient is alert, oriented x 3, equal unlabored respirations, skin warm/dry/pink. Patient states feeling better. 15:44 Reassessment: Patient appears in no apparent distress at this time. Patient and/or jd3 family updated on plan of care and expected duration. Pain level reassessed. Patient is alert, oriented x 3, equal unlabored respirations, skin warm/dry/pink. Patient states feeling better. Vital Signs: 11:44 BP 83 / 59 RA; Pulse 81; Resp 18 S; Temp 97.8(TE); Pulse Ox 95% on R/A; Weight 96.16 kg ca1 (R); Height 5 ft. 11 in. (180.34 cm) (R); Pain 0/10; 11:48 BP 84 / 54 LA; ca1 12:01 BP 102 / 73 RA; Pulse 71; Resp 18; Pulse Ox 94% on R/A; tr6 12:01 BP 89 / 66 LA; Pulse 71; Resp 18; Pulse Ox 94% on R/A; tr6 15:45 BP 129 / 78; Pulse 76; Resp 20 S; Pulse Ox 95% on R/A; jd3 11:44 Body Mass Index 29.57 (96.16 kg, 180.34 cm) ca1 ED Course: 11:31 Patient arrived in ED. mr 11:47 Triage completed. ca1 11:47 Arm band placed on right wrist. ca1 11:53 Pawel Farah PA is PHCP. jr8 11:53 Jerad Bullard MD is Attending Physician. jr8 12:00 Treva Whitmore RN is Primary Nurse. tr6 12:02 Patient has correct armband on for positive identification. Fall risk band placed. tr6 Placed in gown. Bed in low position. Call light in reach. Side rails up X2. residential monitor on. Pulse ox on. NIBP on. Door closed. Noise minimized. Visitors limited. Lights dimmed. Moved to private room. Warm blanket given. 12:02 No provider procedures requiring assistance completed. tr6 12:31 XRAY Chest (1 view) In Process Unspecified. EDMS 15:44 IV discontinued, intact, bleeding controlled, No redness/swelling at site. Pressure jd3 dressing applied. Administered Medications: 13:07 Drug: NS 0.9% 1000 ml Route: IV; Rate: 1000 ml; Site: right wrist; tr6 13:42 Follow up: IV Status: Completed infusion; IV Intake: 1000ml tr6 13:07 Drug: SOLU-Medrol (methylPrednisoLONE) 125 mg Route: IVP; Site: right wrist; tr6 13:42 Follow up: Response: No adverse reaction tr6 14:06 Drug: NS 0.9% 1000 ml Route: IV; Rate: 1000 ml; Site: right wrist; tr6 15:45 Follow up: Response: No adverse reaction; IV Status: Completed infusion jd3 Intake: 13:42 IV: 1000ml; Total: 1000ml. tr6 Outcome: 14:44 Discharge ordered by . jr8 15:43 Discharged to home ambulatory, with family. jd3 15:43 Condition: stable 15:43 Discharge instructions given to patient, Instructed on discharge instructions, follow up and referral plans. medication usage, Demonstrated understanding of instructions, follow-up care, medications, Prescriptions given X 1. 15:45 Patient left the ED. jd3 Signatures: Dispatcher [employer] JACQUI KvngJonelleterrancePawel merritt PA PA jr8 Davies, Jonathon, RN RN jd3 Petty Porter RN RN ca1 Treva Whitmore RN RN tr6
[2020-11-30 15:50] VITALS: TEMP 97.8
[2020-11-30 15:55] VITALS: BP 129/78; O2SAT 95
--- NOTE | 2020-12-01 10:52 | EKG ---
Test Date: 2020-11-30 Test Time: 12:08:23 [employer] Operator: MARTI MEASUREMENT RESULTS: Intervals: Rate: 74 ME: 140 QRSD: 112 QT: 428 QTc: 475 [place]: P: 68 ME: 140 QRS: 1 T: 68 INTERPRETIVE STATEMENTS: Normal sinus rhythm Left ventricular hypertrophy with repolarization abnormality Abnormal ECG Compared to ECG 02/16/2020 15:38:08 Left bundle-branch block no longer present Electronically Signed On 12-01-20 10:48:36 CDT by Junito Coates
== END 2020-11-30 15:45 | disposition home or self-care (01) ==
LOC: ER 11:29
DX: U07.1 COVID-19 (principal); J12.82 Pneumonia due to coronavirus disease 2019; E86.0 Dehydration; I10 Essential (primary) hypertension; Z86.711 Personal history of pulmonary embolism; Z79.01 Long term (current) use of anticoagulants; Z95.1 Presence of aortocoronary bypass graft
CPT/HCPCS: 96361; 93005; 87040 ×2; 85025; 80048; 36415; 83735; 85610; 80076; 83605; 84484; 84145; 83880; 71045; 96374; 99284; J7030; J2930